=== PATIENT | female | born 1955 | race Caucasian/White ===

== ENCOUNTER 2016-07-09 18:08 | Emergency (ER) ==
[2016-07-09 18:16] VITALS: BP 134/70; TEMP 98.9; BMI 52.2
--- NOTE | 2016-07-09 18:42 | ED.PDOC ---
General <FRANKLYN MAHAN Last Filed: 07/09/16 19:49> Stated Complaint: back pain Time Seen by Physician: 18:10 Mode of Arrival: Walk-In Information Source: Patient Exam Limitations: No limitations Nursing and Triage Documentation Reviewed and Agree: Yes <RAMONA ZARCO Filed: 07/20/16 12:42> ED Provider: Dr. RAMONA ZARCO Chief Complaint: Back Pain Primary Care Provider: KP ZAMORA Musculoskeletal Complaint Exam - Back Pain Complaint/Exam Mechanism of Injury: Reports: No known trauma Onset/Duration: 2 days Symptoms Are: Still present Timing: Intermittent Initial Severity: Moderate Current Severity: Moderate Character: Reports: Spasmodic, Stiffness Aggravating: Reports: Movements, Lifting, Bending, Walking Alleviating: Reports: Rest, Position Associated Signs and Symptoms: Denies: Swelling, Redness, Bruising, Fever, Weakness, Numbness, Tingling, Abdominal pain, Flank pain, Bladder incontinence, Bowel incontinence, Weight loss, Pain with weight bearing Related History: Reports: Similar episode TAD Risk Factors: Reports: Hypertension AAA Risk Factors: Reports: Hypertension Cauda Equina Risk Factors: Reports: None Epidural Abcess Risk Factors: Reports: None Related Surgical History: Reports: None Focal Tenderness: No Paraspinal Muscle Tenderness: No Paraspinal Muscle Spasm: No Scoliosis: No Lordosis: No SLR Test: Right Negative, Left Negative Hip Motion Testing Pain: Right Negative, Left Negative Focal Weakness: Present: None Focal Sensory Loss: Present: None Gait: Present: Normal Differential Diagnoses: Strain, Sprain <RAMONA ZARCO Filed: 07/20/16 12:42> Review of Systems - Review Of Systems Constitutional: Reports: No symptoms Eyes: Reports: No symptoms Ears, Nose, Mouth, Throat: Reports: No symptoms Respiratory: Reports: No symptoms Cardiac: Reports: No symptoms GI: Reports: No symptoms : Reports: No symptoms Musculoskeletal: Reports: Back pain Skin: Reports: No symptoms Neurological: Reports: No symptoms Endocrine: Reports: No symptoms Hematologic/Lymphatic: Reports: No symptoms All Other Systems: Reviewed and Negative <RAMONA ZARCO Filed: 07/20/16 12:42> Past Medical History - Past Medical History Previously Healthy: No Endocrine: Reports: DM 2, Dyslipidemia Cardiovascular: Reports: Hypertension Respiratory: Reports: None, Pneumonia (2016) Hematological: Reports: None Gastrointestinal: Reports: None Genitourinary: Reports: None Neuro/Psych: Reports: None Musculoskeletal: Reports: None Cancer: Reports: None Last Menstrual Period: unknown - Surgical History General Surgical History: Reports: (X2), Cholecystectomy (CCE 05/29/15 ), Unknown - Family History Family History: Reports: Unknown - Social History Smoking Status: Never smoker Hx Substance Use: No Alcohol Screening: None <RAMONA ZARCO Last Filed: 07/20/16 12:42> Physical Exam - Physical Exam Appearance: Well-appearing, No pain distress, Well-nourished Eyes: ALEJO, EOMI, Conjunctiva clear ENT: Ears normal, Nose normal, Oropharynx normal Respiratory: Airway patent, Breath sounds clear, Breath sounds equal, Respirations nonlabored Cardiovascular: RRR, Pulses normal, No rub, No murmur GI/: Soft, Nontender, No masses, Bowel sounds normal, No Organomegaly Musculoskeletal: Normal strength, ROM intact, No edema, No calf tenderness Skin: Warm, Dry, Normal color Neurological: Sensation intact, Motor intact, Reflexes intact, Cranial nerves intact, Alert, Oriented Psychiatric: Affect appropriate, Mood appropriate <RAMONA ZRACO Last Filed: 07/20/16 12:42> Interpretation - Radiology Interpretation Radiology Interpretation By: Radiologist Radiology Results: Negative Exam Interpreted: CT Scan <FRANKLYN MAHAN Last Filed: 07/09/16 19:49> Physician Notification - Case Discussed Physician Notified: [email or web address] Time of Notification: 18:41 <RAMONA ZARCO Last Filed: 07/20/16 12:42> Critical Care Note - Critical Care Note Total Time (mins): 0 <RAMONA ZARCO Last Filed: 07/20/16 12:42> Course - Course Hematology/Chemistry: 07/09/16 18:50 07/09/16 18:50 <FRANKLYN MAHAN Last Filed: 07/09/16 19:49> - Course Hematology/Chemistry: 07/09/16 18:50 07/09/16 18:50 <RAMONA ZARCO Last Filed: 07/20/16 12:42> - Course Orders, Labs, Meds: Lab Review 07/09/16 18:50 WBC 6.87 RBC 4.99 Hgb 13.9 Hct 43.5 MCV 87.2 MCH 27.9 MCHC 32.0 RDW Coeff of Zak 14.1 Plt Count 241 Immature Gran % (Auto) 0.6 Neut % (Auto) 67.5 Lymph % (Auto) 18.9 Placer % (Auto) 6.3 Eos % (Auto) 6.0 Baso % (Auto) 0.7 Immature Gran # (Auto) 0.0 Neut # 4.6 Lymph # 1.3 Placer # 0.4 Eos # 0.4 Baso # 0.1 Sodium 144 Potassium 4.2 Chloride 108 H Carbon Dioxide 26 Anion Gap 14.2 BUN 19 H Creatinine 1.20 Estimated GFR (MDRD) 46.00 BUN/Creatinine Ratio 15.83 Glucose 119 H Calcium 9.1 Total Bilirubin 0.53 AST 14 L ALT 9 L Alkaline Phosphatase 91 Total Protein 6.6 Albumin 3.6 Globulin 3.0 Albumin/Globulin Ratio 1.20 Urine Color Yellow Urine Clarity Cloudy Urine pH 5.0 Ur Specific [place] 1.025 Urine Protein Negative Urine Glucose (UA) Negative Urine Ketones Trace Urine Blood Trace-intact Urine Nitrite Negative Urine Bilirubin Negative Urine Urobilinogen 0.2 Ur Leukocyte Esterase 2+ Urine Microscopic RBC 2-5 Urine Microscopic WBC 5-10 Ur Squamous Epith Cells 5-10 Urine Bacteria 1+ Orders Category Date Time Status CBC W/ AUTO DIFF Stat LAB 07/09/16 18:50 Completed COMPREHENSIVE METABOLIC PANEL Stat LAB 07/09/16 18:50 Completed URINALYSIS C & S IF INDICATED Stat LAB 07/09/16 18:50 Completed URINE CULTURE Stat LAB 07/09/16 19:[address] ABDOMEN/PELVIS WO CONTRAST Stat RADS 07/09/16 18:38 Completed Vital Signs: Temp Pulse Resp BP Pulse Ox 07/09/16 18:09 98.9 F 62 20 134/70 97 Departure - Departure Time of Disposition: 19:49 Pt referred to PMD for follow-up: Yes Disposition Discussed With: Patient, Family <FRANKLYN MAHAN - Last Filed: 07/09/16 19:49> <RAMONA ZARCO - Last Filed: 07/20/16 12:42> - Departure Disposition: HOME SELF-CARE Discharge Problem: Backache, Urinary tract infection Instructions: Urinary Tract Infection in Women (ED) Condition: Fair Additional Instructions: Push fluids Take Antibiotics as prescribed Follow up with PCP in 3 days Prescriptions: Levofloxacin [Levaquin] 500 mg PO DAILY #7 tablet Phenazopyridine HCl [Pyridium] 100 mg PO TID PRN #10 tablet PRN Reason: Urinary Burning. Tramadol HCl [Ultram] 50 mg PO Q6H PRN #25 tablet PRN Reason: Severe Pain Allergies/Adverse Reactions: Allergies Penicillins Adverse Reaction (Verified 07/09/16 18:16) Rash Sulfa (Sulfonamide Antibiotics) Adverse Reaction (Verified 07/09/16 18:16) Rash Home Medications: Ambulatory Orders Clopidogrel Bisulfate [Plavix] 75 mg PO DAILY 05/15/15 Lisinopril 2.5 mg PO DAILY 05/15/15 Metformin HCl [Glucophage] 500 mg PO BIDWM 05/15/15 Atorvastatin Calcium [Lipitor] 10 mg PO BEDTIME 07/14/15 Levofloxacin [Levaquin] 500 mg PO DAILY #7 tablet 07/09/16 Phenazopyridine HCl [Pyridium] 100 mg PO TID PRN #10 tablet 07/09/16 Tramadol HCl [Ultram] 50 mg PO Q6H PRN #25 tablet 07/09/16
[2016-07-09 19:08] LABS: BASOPHILS # (AUTO) 0.1 K/uL (0-0.2); BASOPHILS % (AUTO) 0.7 % (0.0-3.0); EOSINOPHILS # (AUTO) 0.4 K/ul (0.0-0.7); HEMATOCRIT 43.5 % (37.0-47.0); HEMOGLOBIN 13.9 g/dl (12.0-16.0); IMMATURE GRANULOCYTE % (AUTO) 0.6 % (0.0-5.0); LYMPHOCYTES # (AUTO) 1.3 K/uL (0.60-3.4); LYMPHOCYTES % (AUTO) 18.9 (10.0-50.0); MEAN CORPUSCULAR HEMOGLOBIN 27.9 pg (27.0-31.0); MEAN CORPUSCULAR VOLUME 87.2 fl (81.0-99.0); MONOCYTES # (AUTO) 0.4 K/uL (0.4-2.0); MONOCYTES % (AUTO) 6.3 (0-10); NEUTROPHILS # (AUTO) 4.6 K/ul (2.0-6.9); NEUTROPHILS % (AUTO) 67.5; PLATELET COUNT 241 10^3/uL (140-440); RED BLOOD COUNT 4.99 10^6/ul (4.20-5.40); WHITE BLOOD COUNT 6.87 K/ul (4.6-10.2)
[2016-07-09 19:11] LABS: BILIRUBIN,URINE Negative (NEGATIVE); KETONES,URINE Trace (NEGATIVE); LEUKOCYTE ESTERASE ,URINE 2+ (NEGATIVE); NITRITE,URINE Negative (NEGATIVE); PROTEIN,URINE Negative (NEGATIVE); URINE, BLOOD Trace-intact (NEGATIVE)
--- NOTE | 2016-07-09 19:16 | CT ---
EXAM: CT scan of the abdomen and pelvis without contrast HISTORY: Back and lower abdominal pain, previous kidney stones TECHNIQUE: Imaging of the abdomen and pelvis was performed without contrast. 3 mm thin axial image s and coronal and sagittal reconstructions were provided for interpretation. Comparison 02/27/2016 CT scan of the abdomen and pelvis. FINDINGS: The liver, spleen, pancreas, adrenal glands and kidneys appear normal. The proximal uret ers are normal size. There are small nonobstructing calculi seen within the upper pole of the left k idney. The small and large bowel loops are normal in caliber. The appendix was not well seen. No d efinite inflammatory changes are seen within the right lower quadrant of the abdomen. The helical images obtained through the pelvis demonstrate a normal appearance of the rectum, urinar y bladder. There is no free fluid seen within the pelvis. No retroperitoneal abnormalities are see n. Scattered diverticula are seen within the sigmoid colon without acute inflammation. Lung bases ar e clear. No lytic or blastic lesions are seen within the osseous structures. IMPRESSION: Nonobstructing nephrolithiasis seen within the left kidney. There is no ureteral obstruction. No evidence for small bowel obstruction. Mild diverticular disease of the sigmoid colon without acute inflammation.
[2016-07-09 19:18] LABS: ADD URINE MICROSCOPIC YES
[2016-07-09 19:19] LABS: BACTERIA,URINE 1+ (NOT PRESENT)
[2016-07-09 19:25] LABS: ALBUMIN 3.6 g/dL (3.4-5.0); ALBUMIN/GLOBULIN RATIO 1.2; ANION GAP 14.2; BILIRUBIN,TOTAL 0.53 mg/dL (0.00-1.20); BUN/CREATININE RATIO 15.83; CALCIUM 9.1 mg/dL (8.2-10.2); CREATININE 1.2 mg/dL (0.60-1.30); POTASSIUM 4.2 mmol/L (3.5-5.10); TOTAL PROTEIN 6.6 g/dL (6.4-8.2)
== END 2016-07-09 20:00 | disposition home or self-care (01) ==
LOC: ED 18:08
DX: N39.0 Urinary tract infection, site not specified (principal); I10 Essential (primary) hypertension; E11.9 Type 2 diabetes mellitus without complications; Z79.899 Other long term (current) drug therapy
CPT/HCPCS: 36415; 80053; 81001; 85025; 87086; 99283

== ENCOUNTER 2016-07-15 10:15 | Outpatient (CLI) ==
[2016-07-15 10:34] LABS: BASOPHILS # (AUTO) 0.1 K/uL (0-0.2); BASOPHILS % (AUTO) 0.6 % (0.0-3.0); EOSINOPHILS # (AUTO) 0.5 K/ul (0.0-0.7); EOSINOPHILS % (AUTO) 6.4 % (0.0-7.0); HEMATOCRIT 40.7 % (37.0-47.0); HEMOGLOBIN 13.4 g/dl (12.0-16.0); IMMATURE GRANULOCYTE % (AUTO) 0.6 % (0.0-5.0); LYMPHOCYTES # (AUTO) 1.9 K/uL (0.60-3.4); LYMPHOCYTES % (AUTO) 24.3 (10.0-50.0); MEAN CORPUSCULAR HEMOGLOBIN 27.9 pg (27.0-31.0); MEAN CORPUSCULAR HGB CONC 32.9 (31.8-35.4); MEAN CORPUSCULAR VOLUME 84.6 fl (81.0-99.0); MONOCYTES # (AUTO) 0.8 K/uL (0.4-2.0); MONOCYTES % (AUTO) 10.2 (0-10); NEUTROPHILS # (AUTO) 4.5 K/ul (2.0-6.9); NEUTROPHILS % (AUTO) 57.9; PLATELET COUNT 201 10^3/uL (140-440); RED BLOOD COUNT 4.81 10^6/ul (4.20-5.40); WHITE BLOOD COUNT 7.78 K/ul (4.6-10.2)
[2016-07-15 10:35] LABS: BILIRUBIN,URINE Negative (NEGATIVE); KETONES,URINE Negative (NEGATIVE); LEUKOCYTE ESTERASE ,URINE 2+ (NEGATIVE); NITRITE,URINE Negative (NEGATIVE); PROTEIN,URINE Negative (NEGATIVE); URINE, BLOOD Negative (NEGATIVE)
[2016-07-15 10:37] LABS: ADD URINE MICROSCOPIC YES
[2016-07-15 10:54] LABS: ALBUMIN 3.8 g/dL (3.4-5.0); ALBUMIN/GLOBULIN RATIO 1.27; ANION GAP 15.2; BILIRUBIN,TOTAL 0.55 mg/dL (0.00-1.20); BUN/CREATININE RATIO 26.49; CALCIUM 9.4 mg/dL (8.2-10.2); CREATININE 1.17 mg/dL (0.60-1.30); POTASSIUM 5.2 mmol/L (3.5-5.10); TOTAL PROTEIN 6.8 g/dL (6.4-8.2)
== END 2016-07-15 10:16 | disposition home or self-care (01) ==
LOC: LAB 10:15
PROVIDERS: ATTEND Family Medicine
DX: B02.9 Zoster without complications (principal); N20.9 Urinary calculus, unspecified; E11.9 Type 2 diabetes mellitus without complications; E78.5 Hyperlipidemia, unspecified; N18.9 Chronic kidney disease, unspecified; Z79.899 Other long term (current) drug therapy
CPT/HCPCS: 36415; 80053; 81001; 85025

== ENCOUNTER 2016-07-30 10:00 | Outpatient (CLI) ==
[2016-07-30 10:33] LABS: BASOPHILS % (AUTO) 0.5 % (0.0-3.0); EOSINOPHILS # (AUTO) 0.3 K/ul (0.0-0.7); EOSINOPHILS % (AUTO) 4.5 % (0.0-7.0); HEMATOCRIT 40.3 % (37.0-47.0); HEMOGLOBIN 13.1 g/dl (12.0-16.0); IMMATURE GRANULOCYTE % (AUTO) 0.4 % (0.0-5.0); LYMPHOCYTES # (AUTO) 1.1 K/uL (0.60-3.4); LYMPHOCYTES % (AUTO) 19.9 (10.0-50.0); MEAN CORPUSCULAR HEMOGLOBIN 27.8 pg (27.0-31.0); MEAN CORPUSCULAR HGB CONC 32.5 (31.8-35.4); MEAN CORPUSCULAR VOLUME 85.6 fl (81.0-99.0); MONOCYTES # (AUTO) 0.4 K/uL (0.4-2.0); MONOCYTES % (AUTO) 7.6 (0-10); NEUTROPHILS # (AUTO) 3.7 K/ul (2.0-6.9); NEUTROPHILS % (AUTO) 67.1; PLATELET COUNT 171 10^3/uL (140-440); RED BLOOD COUNT 4.71 10^6/ul (4.20-5.40); WHITE BLOOD COUNT 5.53 K/ul (4.6-10.2)
[2016-07-30 10:42] LABS: ALBUMIN 3.8 g/dL (3.4-5.0); ALBUMIN/GLOBULIN RATIO 1.41; ANION GAP 12.5; BILIRUBIN,TOTAL 0.63 mg/dL (0.00-1.20); BUN/CREATININE RATIO 17.7; CALCIUM 9.5 mg/dL (8.2-10.2); CHOL/HDL RATIO 2.7 (4.5-5.5); CREATININE 0.96 mg/dL (0.60-1.30); POTASSIUM 4.5 mmol/L (3.5-5.10); TOTAL PROTEIN 6.5 g/dL (6.4-8.2)
[2016-07-30 10:54] LABS: BILIRUBIN,URINE Negative (NEGATIVE); KETONES,URINE Negative (NEGATIVE); LEUKOCYTE ESTERASE ,URINE 1+ (NEGATIVE); NITRITE,URINE Negative (NEGATIVE); PROTEIN,URINE Negative (NEGATIVE); URINE, BLOOD Negative (NEGATIVE)
[2016-07-30 10:55] LABS: ADD URINE MICROSCOPIC YES
[2016-07-30 11:02] LABS: BACTERIA,URINE TRACE (NOT PRESENT)
== END 2016-07-30 10:01 | disposition home or self-care (01) ==
LOC: LAB 10:00
PROVIDERS: ATTEND Family Medicine
DX: I10 Essential (primary) hypertension (principal); E11.9 Type 2 diabetes mellitus without complications; E78.5 Hyperlipidemia, unspecified; B02.9 Zoster without complications; N20.9 Urinary calculus, unspecified; N18.9 Chronic kidney disease, unspecified; Z79.899 Other long term (current) drug therapy
CPT/HCPCS: 36415; 80053; 80061; 81001; 85025

== ENCOUNTER 2016-08-08 13:10 | Outpatient (CLI) ==
--- NOTE | 2016-08-08 13:49 | CT ---
EXAM: CT abdomen pelvis without contra HISTORY: Frequent urinary tract infection, history non obstruction renal stones COMPARISON: 07/09/2016 TECHNIQUE: CT abdomen pelvis performed without intravenous contrast. Coronal and sagittal reformat judy images obtained. FINDINGS: Lung bases clear. No free air. No acute abnormalities of the bones. Degenerative beasley e in the spine. Evaluation organ parenchyma limited without contrast. Heart normal in size. Liver appears normal. Patient status post cholecystectomy. Pancreas appears normal. Spleen is mildly e nlarged. Adrenal glands appear normal. Aorta normal in caliber. Uterus unremarkable. No lymphade nopathy or ascites. Small fat-containing umbilical hernia. Small hiatal hernia. Small stable fat attenuation in the duodenum consistent with small lipoma measuring 1.0 cm. No dilated loops small b owel. Appendix appears normal. There is colonic diverticulosis. There is increased submucosal fat deposition in the right and transverse colon, a finding that can be seen in sequela of remote infla mmation. Stable 1.6 cm left renal cyst measuring simple fluid attenuation. Several small left lydia l calculi measuring up to 2 mm. No hydronephrosis. No calculi visualized in the normal course of t he ureters. Bladder unremarkable. IMPRESSION: 1. Left nephrolithiasis. No hydronephrosis. 2. Colonic diverticulosis. 3. Splenomegaly. 4. Small hiatal hernia
== END 2016-08-08 13:11 | disposition home or self-care (01) ==
LOC: LAB 13:10
PROVIDERS: ATTEND Family Medicine
DX: N30.00 Acute cystitis without hematuria (principal); Z87.440 Personal history of urinary (tract) infections; Z87.442 Personal history of urinary calculi
CPT/HCPCS: 87086

== ENCOUNTER 2016-08-14 16:12 | Outpatient (CLI) ==
[2016-08-14 16:30] LABS: BASOPHILS # (AUTO) 0.1 K/uL (0-0.2); BASOPHILS % (AUTO) 0.7 % (0.0-3.0); EOSINOPHILS # (AUTO) 0.2 K/ul (0.0-0.7); EOSINOPHILS % (AUTO) 2.6 % (0.0-7.0); HEMATOCRIT 38.4 % (37.0-47.0); HEMOGLOBIN 12.4 g/dl (12.0-16.0); IMMATURE GRANULOCYTE % (AUTO) 0.7 % (0.0-5.0); LYMPHOCYTES % (AUTO) 11.5 (10.0-50.0); MEAN CORPUSCULAR HEMOGLOBIN 27.2 pg (27.0-31.0); MEAN CORPUSCULAR HGB CONC 32.3 (31.8-35.4); MEAN CORPUSCULAR VOLUME 84.2 fl (81.0-99.0); MONOCYTES # (AUTO) 0.7 K/uL (0.4-2.0); MONOCYTES % (AUTO) 8.4 (0-10); NEUTROPHILS # (AUTO) 6.8 K/ul (2.0-6.9); NEUTROPHILS % (AUTO) 76.1; PLATELET COUNT 204 10^3/uL (140-440); RED BLOOD COUNT 4.56 10^6/ul (4.20-5.40); WHITE BLOOD COUNT 8.86 K/ul (4.6-10.2)
[2016-08-14 16:45] LABS: ALBUMIN 3.3 g/dL (3.4-5.0); ALBUMIN/GLOBULIN RATIO 0.97; ANION GAP 15.4; BILIRUBIN,TOTAL 1.08 mg/dL (0.00-1.20); BUN/CREATININE RATIO 13.97; CALCIUM 9.4 mg/dL (8.2-10.2); CREATININE 0.93 mg/dL (0.60-1.30); POTASSIUM 4.4 mmol/L (3.5-5.10); TOTAL PROTEIN 6.7 g/dL (6.4-8.2)
[2016-08-14 16:47] LABS: FLU INTERNAL QC INTERNAL QC VALID; RAPID FLU A NEGATIVE (NEGATIVE); RAPID FLU B NEGATIVE (NEGATIVE)
--- NOTE | 2016-08-14 17:04 | DI ---
EXAM: Chest two views HISTORY: Cough COMPARISON: 04/25/2016 TECHNIQUE: Two views of the chest were performed FINDINGS: There is right perihilar consolidation appears unchanged. Lower airway thickening. Ther e is no pleural effusion or pneumothorax. The heart is normal in size. The mediastinal contour is normal. There are no acute abnormalities of the bones. IMPRESSION: 1. Chronic right perihilar consolidation could represent pneumonia, though is grossly unchanged fro m 04/25/2016 and other etiologies are not excluded. CT recommended for further evaluation, with con trast provided no contraindication. 2. Lower airway thickening may represent infectious/inflammatory bronchiolitis.
== END 2016-08-14 16:13 | disposition home or self-care (01) ==
LOC: LAB 16:12
PROVIDERS: ATTEND Family Medicine
DX: R51 Headache (principal); R05 Cough; R53.83 Other fatigue
CPT/HCPCS: 36415; 80053; 85025; 87804

== ENCOUNTER 2016-08-22 13:37 | Outpatient (CLI) ==
--- NOTE | 2016-08-22 14:24 | CT ---
EXAM: CT chest without contrast HISTORY: Consolidation. Follow-up COMPARISON: Radiograph 08/14/2016 and 04/25/2016 TECHNIQUE: CT chest performed without intravenous contrast. Coronal and sagittal reformatted image s obtained. FINDINGS: Thyroid and thoracic inlet appear normal. Heart normal in size. No pericardial effusion . Aorta normal in caliber. Esophagus unremarkable. Spleen is mildly enlarged. Patient status pos t cholecystectomy. There is a 1.6 cm left renal cyst. Evaluation for lymphadenopathy limited witho ut contrast. No lymphadenopathy identified. There calcified mediastinal and right hilar lymph node s, consistent with old granulomatous disease. No acute abnormalities of the bones. Central airway patent. No pleural effusion or pneumothorax. There is bilateral lower airway thickening. There is consolidation in the right upper lobe medially and inferiorly and right middle lobe with suggestion of associated bronchiectasis. Bilateral lower airway thickening. There are scattered areas of grou nd-glass infiltrates seen bilaterally. 6 mm mm nodule right lung image 16. Granulomatous calcifica tion right lung. IMPRESSION: 1. Consolidation in the right upper lobe and right middle lobe with suggestion of associated bronch iectasis. There are additional bilateral ground-glass infiltrates.. Findings most likely represent infectious/inflammatory process with pneumonia, though areas of consolidation may be chronic or rec urrent. Additionally, there is bilateral lower airway thickening suggesting infectious/inflammatory bronchiolitis/bronchitis. CT chest follow-up in 3 months is recommended for reevaluation. 2. 6 mm right lung nodule. This can be assessed on follow-up. 3. Mild splenomegaly
--- NOTE | 2016-08-26 08:19 | MAMMO ---
EXAM: Bilateral digital screening mammogram History: Screening Comparison: Bilateral mammogram 03/03/2013 Findings: MLO and CC views of bilateral breasts demonstrate predominately fatty replaced breast par enchyma. Stable benign bilateral breast calcifications. There are no dominant masses, no suspicious microcalcifications and no architectural distortions Impression: Benign stable mammogram. Recommend followup routine screening mammography in 1 year. BIRADS 2
== END 2016-08-22 13:38 | disposition home or self-care (01) ==
LOC: RAD 13:37
PROVIDERS: ATTEND Family Medicine
DX: Z12.31 Encounter for screening mammogram for malignant neoplasm of breast (principal); R91.8 Other nonspecific abnormal finding of lung field; Z87.442 Personal history of urinary calculi

== ENCOUNTER 2016-09-11 13:56 | Outpatient (CLI) ==
--- NOTE | 2016-09-11 14:27 | DI ---
EXAM: Two views of the chest. History: Cough, short of breath Comparison: Chest radiograph 08/14/2016, chest CT 05/24/2016 Findings: Heart size is upper limits of normal. Bilateral interstitial prominence and dilated main pulmonary artery. Question cavitary lesion within the left perihilar region and is similar compare d to the prior studies. No pleural fluid and no pneumothorax. No acute osseous abnormalities. Impression: Bilateral interstitial prominence similar to the prior studies. Pulmonary arterial hyp ertension. No significant interval change.
[2016-09-11 14:30] LABS: BASOPHILS % (AUTO) 0.7 % (0.0-3.0); EOSINOPHILS # (AUTO) 0.6 K/ul (0.0-0.7); EOSINOPHILS % (AUTO) 10.2 % (0.0-7.0); HEMATOCRIT 37.7 % (37.0-47.0); HEMOGLOBIN 12.2 g/dl (12.0-16.0); IMMATURE GRANULOCYTE % (AUTO) 0.4 % (0.0-5.0); LYMPHOCYTES # (AUTO) 0.8 K/uL (0.60-3.4); LYMPHOCYTES % (AUTO) 14.6 (10.0-50.0); MEAN CORPUSCULAR HEMOGLOBIN 27.7 pg (27.0-31.0); MEAN CORPUSCULAR HGB CONC 32.4 (31.8-35.4); MEAN CORPUSCULAR VOLUME 85.5 fl (81.0-99.0); MONOCYTES # (AUTO) 0.4 K/uL (0.4-2.0); MONOCYTES % (AUTO) 7.1 (0-10); NEUTROPHILS # (AUTO) 3.7 K/ul (2.0-6.9); PLATELET COUNT 151 10^3/uL (140-440); RED BLOOD COUNT 4.41 10^6/ul (4.20-5.40); WHITE BLOOD COUNT 5.47 K/ul (4.6-10.2)
[2016-09-11 14:32] LABS: BILIRUBIN,URINE Negative (NEGATIVE); KETONES,URINE Negative (NEGATIVE); LEUKOCYTE ESTERASE ,URINE 1+ (NEGATIVE); NITRITE,URINE Negative (NEGATIVE); PH,URINE 5.5 (5-9); PROTEIN,URINE Negative (NEGATIVE); URINE, BLOOD Negative (NEGATIVE)
[2016-09-11 14:42] LABS: ADD URINE MICROSCOPIC YES
[2016-09-11 14:43] LABS: BACTERIA,URINE 1+ (NOT PRESENT)
[2016-09-11 14:49] LABS: FLU INTERNAL QC INTERNAL QC VALID; RAPID FLU A NEGATIVE (NEGATIVE); RAPID FLU B NEGATIVE (NEGATIVE)
[2016-09-11 15:00] LABS: ALBUMIN 3.5 g/dL (3.4-5.0); ALBUMIN/GLOBULIN RATIO 1.25; ANION GAP 12.7; BILIRUBIN,TOTAL 0.95 mg/dL (0.00-1.20); BUN/CREATININE RATIO 12.37; CALCIUM 8.9 mg/dL (8.2-10.2); CREATININE 0.97 mg/dL (0.60-1.30); POTASSIUM 3.7 mmol/L (3.5-5.10); TOTAL PROTEIN 6.3 g/dL (6.4-8.2)
== END 2016-09-11 13:57 | disposition home or self-care (01) ==
LOC: RAD 13:56
PROVIDERS: ATTEND Family Medicine
DX: R05 Cough (principal); R50.9 Fever, unspecified; R06.02 Shortness of breath; Z87.442 Personal history of urinary calculi
CPT/HCPCS: 36415; 80053; 81001; 85025; 87804

== ENCOUNTER 2016-10-15 12:41 | Outpatient (CLI) ==
[2016-10-15 12:58] LABS: BASOPHILS % (AUTO) 0.5 % (0.0-3.0); EOSINOPHILS # (AUTO) 0.3 K/ul (0.0-0.7); EOSINOPHILS % (AUTO) 3.8 % (0.0-7.0); HEMATOCRIT 37.2 % (37.0-47.0); HEMOGLOBIN 12.1 g/dl (12.0-16.0); IMMATURE GRANULOCYTE % (AUTO) 0.6 % (0.0-5.0); LYMPHOCYTES # (AUTO) 0.9 K/uL (0.60-3.4); LYMPHOCYTES % (AUTO) 11.4 (10.0-50.0); MEAN CORPUSCULAR HEMOGLOBIN 27.6 pg (27.0-31.0); MEAN CORPUSCULAR HGB CONC 32.5 (31.8-35.4); MEAN CORPUSCULAR VOLUME 84.9 fl (81.0-99.0); MONOCYTES # (AUTO) 0.7 K/uL (0.4-2.0); MONOCYTES % (AUTO) 8.2 (0-10); NEUTROPHILS # (AUTO) 5.9 K/ul (2.0-6.9); NEUTROPHILS % (AUTO) 75.5; PLATELET COUNT 183 10^3/uL (140-440); RED BLOOD COUNT 4.38 10^6/ul (4.20-5.40); WHITE BLOOD COUNT 7.88 K/ul (4.6-10.2)
[2016-10-15 13:18] LABS: ALBUMIN 3.2 g/dL (3.4-5.0); ALBUMIN/GLOBULIN RATIO 0.84; ANION GAP 15.3; BILIRUBIN,TOTAL 1.38 mg/dL (0.00-1.20); BUN/CREATININE RATIO 19.09; CALCIUM 9.4 mg/dL (8.2-10.2); CREATININE 1.1 mg/dL (0.60-1.30); POTASSIUM 4.3 mmol/L (3.5-5.10)
--- NOTE | 2016-10-15 14:27 | CT ---
EXAM: CT chest without contrast HISTORY: Shortness of breath COMPARISON: CT chest 08/22/2016 and multiple prior chest x-rays TECHNIQUE: Serial axial images of the chest were obtained from the lung apices to the upper abdomen without contrast. These were viewed in multiple planes. FINDINGS: The thyroid is normal. The visualized vessels demonstrate mild atherosclerotic disease w ith mildly enlarged pulmonary arteries. The heart is normal in size without pericardial effusion. There are no pathologically enlarged mediastinal or hilar lymph nodes. Calcified mediastinal and hil ar lymph nodes are present. There is no pneumothorax or pleural effusion. Patchy ground-glass opacities throughout both lungs a re mildly worsened with worsening consolidation in the medial left lower lobe. There are developing consolidations with airway thickening in the lingula. The airways are patent otherwise. There are few scattered ground-glass pulmonary nodules. Soft tissues in the upper abdomen demonstrate prior cholecystectomy. There is an exophytic low atte nuation lesion measuring 1.6 cm in diameter with Hounsfield units consistent with a cyst off the lef t kidney. The osseous structures are unremarkable. IMPRESSION: 1. Worsening patchy ground-glass opacities and consolidation in the medial left lower lobe most con sistent with multifocal pneumonia. Recommend follow-up after interval treatment. 2. Sequela of old granulomatous disease. Pulmonary arteries are upper limit of normal and may sugge st a component of hypertension. 3. Low attenuation lesion of the left kidney consistent with a cyst.
== END 2016-10-15 12:42 | disposition home or self-care (01) ==
LOC: RAD 12:41
PROVIDERS: ATTEND Family Medicine
DX: R06.02 Shortness of breath (principal); J84.9 Interstitial pulmonary disease, unspecified; I27.2 Other secondary pulmonary hypertension; E78.5 Hyperlipidemia, unspecified; E11.9 Type 2 diabetes mellitus without complications
CPT/HCPCS: 36415; 80053; 83880; 85025

== ENCOUNTER 2016-10-31 12:55 | Outpatient (CLI) ==
[2016-10-31] MEDS ORDERED: ALBUTEROL 0.083% NEB NEB STA (13:21)
== END 2016-10-31 12:56 | disposition home or self-care (01) ==
LOC: CAR 12:55
PROVIDERS: ATTEND Family Medicine
DX: R06.02 Shortness of breath (principal); J42 Unspecified chronic bronchitis; J98.4 Other disorders of lung

== ENCOUNTER 2016-11-08 13:30 | Outpatient (CLI) ==
--- NOTE | 2016-11-08 13:49 | DI ---
EXAM: CHEST FRONTAL AND LATERAL VIEWS HISTORY: Cough. COMPARISON: 09/11/2016 FINDINGS: Heart size upper limit normal and stable. Chronic-appearing interstitial changes diffuse ly. Newly developed ill-defined 2.5 cm density lateral right lung base situated probably within the middle lobe. No vascular congestion or pleural fluid. IMPRESSION: Right base density probably representing pneumonia given the patient's history. This is new since t he previous exam. Consider follow-up chest radiograph after management to assure clearance.
[2016-11-08 14:00] LABS: BASOPHILS % (AUTO) 0.4 % (0.0-3.0); EOSINOPHILS # (AUTO) 0.3 K/ul (0.0-0.7); EOSINOPHILS % (AUTO) 3.2 % (0.0-7.0); HEMATOCRIT 37.4 % (37.0-47.0); HEMOGLOBIN 11.7 g/dl (12.0-16.0); IMMATURE GRANULOCYTE % (AUTO) 0.7 % (0.0-5.0); LYMPHOCYTES % (AUTO) 10.5 (10.0-50.0); MEAN CORPUSCULAR HEMOGLOBIN 26.7 pg (27.0-31.0); MEAN CORPUSCULAR HGB CONC 31.3 (31.8-35.4); MEAN CORPUSCULAR VOLUME 85.2 fl (81.0-99.0); MONOCYTES # (AUTO) 0.5 K/uL (0.4-2.0); MONOCYTES % (AUTO) 5.7 (0-10); NEUTROPHILS # (AUTO) 7.2 K/ul (2.0-6.9); NEUTROPHILS % (AUTO) 79.5; PLATELET COUNT 290 10^3/uL (140-440); RED BLOOD COUNT 4.39 10^6/ul (4.20-5.40); WHITE BLOOD COUNT 9.09 K/ul (4.6-10.2)
== END 2016-11-08 13:31 | disposition home or self-care (01) ==
LOC: RAD 13:30
PROVIDERS: ATTEND Family Medicine
DX: R05 Cough (principal); R07.9 Chest pain, unspecified
CPT/HCPCS: 36415; 85025

== ENCOUNTER 2017-04-24 12:38 | Outpatient (CLI) ==
[2017-04-24 13:05] LABS: BASOPHILS % (AUTO) 0.2 % (0.0-3.0); EOSINOPHILS % (AUTO) 0.2 % (0.0-7.0); HEMATOCRIT 38.7 % (37.0-47.0); HEMOGLOBIN 12.3 g/dl (12.0-16.0); IMMATURE GRANULOCYTE % (AUTO) 0.7 % (0.0-5.0); LYMPHOCYTES # (AUTO) 0.8 K/uL (0.60-3.4); LYMPHOCYTES % (AUTO) 12.5 (10.0-50.0); MEAN CORPUSCULAR HGB CONC 31.8 (31.8-35.4); MEAN CORPUSCULAR VOLUME 84.9 fl (81.0-99.0); MONOCYTES # (AUTO) 0.5 K/uL (0.4-2.0); MONOCYTES % (AUTO) 8.8 (0-10); NEUTROPHILS # (AUTO) 4.7 K/ul (2.0-6.9); NEUTROPHILS % (AUTO) 77.6; PLATELET COUNT 160 10^3/uL (140-440); RED BLOOD COUNT 4.56 10^6/ul (4.20-5.40); WHITE BLOOD COUNT 6.02 K/ul (4.6-10.2)
[2017-04-24 13:16] LABS: FLU INTERNAL QC INTERNAL QC VALID; MOLECULAR FLU A POSITIVE BY NAAT (NEGATIVE); MOLECULAR FLU B NEGATIVE BY NAAT (NEGATIVE)
[2017-04-24 13:27] LABS: ALBUMIN 3.2 g/dL (3.4-5.0); ALBUMIN/GLOBULIN RATIO 0.94; ANION GAP 11.5; BILIRUBIN,TOTAL 0.6 mg/dL (0.00-1.20); BUN/CREATININE RATIO 16.5; CALCIUM 8.6 mg/dL (8.2-10.2); CREATININE 1.03 mg/dL (0.60-1.30); POTASSIUM 3.5 mmol/L (3.5-5.10); TOTAL PROTEIN 6.6 g/dL (5.8-8.1)
--- NOTE | 2017-04-24 13:45 | DI ---
EXAM: Chest two views HISTORY: Fever COMPARISON: 04/24/2017 TECHNIQUE: Two views of the chest were performed FINDINGS: Bilateral lower airway thickening and interstitial opacities. Possible left basilar infil trate. There is no pleural effusion or pneumothorax. The heart is normal in size. The mediastinal contour is normal. There are no acute abnormalities of the bones. IMPRESSION: Possible left basilar pneumonia. Bilateral lower airway thickening and interstitial opa cities may represent atypical infection versus bronchitis.
== END 2017-04-24 12:39 | disposition home or self-care (01) ==
LOC: RAD 12:38
PROVIDERS: ATTEND Family Medicine
DX: J06.9 Acute upper respiratory infection, unspecified (principal); R50.9 Fever, unspecified; R68.89 Other general symptoms and signs
CPT/HCPCS: 36415; 80053; 85025; 87502

== ENCOUNTER 2017-05-05 15:53 | Outpatient (CLI) | payer OTHER ==
--- NOTE | 2017-05-05 16:21 | DI ---
EXAM: Two views of the chest. History: Follow-up pneumonia Comparison: Chest radiograph 04/24/2017 Findings: Heart size is within normal limits. No significant interval change in the retrocardiac le ft lower lobe subsegmental atelectasis or infiltrate. No developing opacities. No appreciable pleur al fluid and no pneumothorax. No acute osseous abnormalities. Impression: No significant interval change in the retrocardiac left lower lobe subsegmental atelecta sis or infiltrate. No developing opacities.
== END 2017-05-05 15:54 | disposition home or self-care (01) ==
LOC: RAD 15:53
PROVIDERS: ATTEND Family Medicine
DX: J18.1 Lobar pneumonia, unspecified organism (principal); J84.9 Interstitial pulmonary disease, unspecified

== ENCOUNTER 2017-07-25 14:09 | Outpatient (CLI) ==
--- NOTE | 2017-07-25 15:44 | DI ---
EXAM: CHEST FRONTAL AND LATERAL VIEWS HISTORY: Cough, chronic obstructive pulmonary disease. COMPARISON: 05/05/2017 FINDINGS: Heart size remains within normal limits. Mild left base/lingular density similar that prev iously seen may represent recurrent atelectasis or subtle pneumonia. Lungs are otherwise clear. Nor mal vascularity. No pleural fluid. IMPRESSION: Persistent mild left base atelectasis or pneumonia.
== END 2017-07-25 14:10 | disposition home or self-care (01) ==
LOC: LAB 14:09
PROVIDERS: ATTEND Family Medicine
DX: R51 Headache (principal); R05 Cough; E11.9 Type 2 diabetes mellitus without complications; R53.83 Other fatigue; I10 Essential (primary) hypertension; E78.5 Hyperlipidemia, unspecified; R06.02 Shortness of breath; J44.9 Chronic obstructive pulmonary disease, unspecified
CPT/HCPCS: 36415; 80053; 80061; 83036; 85025; 87502

== ENCOUNTER 2017-07-29 13:55 | Outpatient (CLI) | payer OTHER | END 2017-07-29 13:56 | disposition home or self-care (01) | LOC: LAB 13:55 | PROVIDERS: ATTEND Family Medicine | DX: R06.02 Shortness of breath (principal); J47.9 Bronchiectasis, uncomplicated; R05 Cough; R91.8 Other nonspecific abnormal finding of lung field | CPT/HCPCS: 36415; 82803; 85025 ==

== ENCOUNTER 2017-08-06 16:01 | Outpatient (CLI) | payer OTHER | END 2017-08-06 16:02 | disposition home or self-care (01) | LOC: LAB 16:01 | PROVIDERS: ATTEND Family Medicine | DX: R10.9 Unspecified abdominal pain (principal) | CPT/HCPCS: 81001 ==

== ENCOUNTER 2017-08-18 16:15 | Outpatient (CLI) ==
--- NOTE | 2017-08-19 08:09 | DI ---
EXAM: Chest two view, frontal and lateral views. HISTORY: Cough, shortness of breath. COMPARISON: 06/28/2017, 11/08/2016, 07/14/2015. FINDINGS: Heart size is normal. There is no vascular congestion. Peribronchial thickening and reti cular opacities throughout both lungs, greatest in the left mid to lower lung again noted. Medial le ft lower lobe consolidation also again seen. No new areas of consolidation, pleural fluid or pneumot horax identified. Degenerative changes seen in the spine. Clips noted in the right upper abdomen. Since prior study, there has been no significant interval change. IMPRESSION: Stable appearance of the chest suggesting chronic inflammation. Follow-up CT may be helpful for furt her characterization.
== END 2017-08-18 16:16 | disposition home or self-care (01) ==
LOC: RAD 16:15
PROVIDERS: ATTEND Family Medicine
DX: R05 Cough (principal); R06.02 Shortness of breath; J44.9 Chronic obstructive pulmonary disease, unspecified; J47.9 Bronchiectasis, uncomplicated

== ENCOUNTER 2017-11-12 07:17 | Outpatient (CLI) | END 2017-11-12 07:18 | disposition home or self-care (01) | LOC: LAB 07:17 | PROVIDERS: ATTEND Family Medicine | DX: E78.5 Hyperlipidemia, unspecified (principal); R35.0 Frequency of micturition; I27.20 Pulmonary hypertension, unspecified; E66.9 Obesity, unspecified | CPT/HCPCS: 36415; 80053; 80061; 81001; 85025; 87086 ==